=== PATIENT | female | born 2000 | race Caucasian/White ===

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

== ENCOUNTER 2018-03-12 22:53 | Emergency (ER) | payer SELFPAY ==
[~2018-03-12] VITALS: Ht 160 cm; Wt 99.8 kg
[~2018-03-12 22:53] MED LIST changes: +AZIT250T12 PO; -AZIT250T5 PO; +NAPR-915 PO; -NAPR500T3 PO; +ONDA8TAB9 PO
[2018-03-12] MEDS ORDERED: LIDOCAINE 1% INJ 20 ML 20 ML VIAL INJ ONE (23:30)
--- NOTE | 2018-03-12 23:37 | ED Integumentary General ---
General Stated Complaint: PIERCING INFECTED Source: patient, family Exam Limitations: no limitations History of Present Illness Date Seen by Provider: Mar 12, 2018 Time Seen by Provider: 23:25 Initial Comments The patient presents ER by private conveyance with chief complaint she's got a infected navel piercing. It was placed at home with a friend Thursday, 5 days ago. She says 2 days later she was getting infected so she took the piercing out has been cleaning it with soap and water but it continues to get infected. This draining some yellow bruise. She's had no fevers chills nausea vomiting abdominal pain dysuria. She is not on any control but denies being . She is not over the last time she had tetanus shot but she certainly more than 5 years ago. Allergies and Home Medications Allergies Coded Allergies: Sulfa (Sulfonamide Antibiotics) (Verified Allergy, Severe, 04/26/13) Home Medications Ondansetron 8 Mg Tab.rapdis, 8 MG PO Q6H PRN for NAUSEA/VOMITING-1ST LINE Prescribed by: ALLI TENORIO on 10/24/161915 Patient Home Medication List Home Medication List Reviewed: Yes Review of Systems Review of Systems Constitutional: No chills, No diaphoresis EENTM: No ear discharge, No hearing loss, No ear pain Respiratory: No cough, No short of breath Cardiovascular: No chest pain, No edema Gastrointestinal: No abdominal pain, No constipation, No diarrhea, No nausea Genitourinary: No discharge, No dysuria Past Gmvaygz-Ooeopl-Sdrrut Hx Patient Social History Alcohol Use: Denies Use Recreational Drug Use: No Smoking Status: Current Everyday Smoker Type Used: Cigarettes 2nd Hand Smoke Exposure: Yes Recent Foreign Travel: No Contact w/Someone Who Travel: No Recent Hopitalizations: No Immunizations Up To Date Tetanus Booster (TDap): Less than 5yrs PED Vaccines UTD: Yes Seasonal Allergies Seasonal Allergies: No Past Medical History Surgeries: Yes Orthopedic Respiratory: No Cardiac: No Neurological: No Reproductive Disorders: No Sexually Transmitted Disease: No HIV/AIDS: No Gastrointestinal: No Musculoskeletal: No Endocrine: No Cancer: No Psychosocial: No Integumentary: No Blood Disorders: No Adverse Reaction/Blood Tranf: No Family Medical History No Pertinent Family Hx Physical Exam Vital Signs Vital Signs - First Documented 03/12/18 23:25 Temp 99.0 Pulse 93 Resp 18 B/P (MAP) 127/59 (81) Pulse Ox 100 O2 Delivery Room Air Capillary Refill : General Appearance: WD/WN, no apparent distress HEENT: PERRL/EOMI, pharynx normal Cardiovascular: normal peripheral pulses, regular rate, rhythm Respiratory: no respiratory distress, no accessory muscle use Gastrointestinal: normal bowel sounds, non tender, soft Neurologic/Psychiatric: alert, normal mood/affect, oriented x 3 Skin: tattoos/piercings (previous site of navel piercing has some swelling, erythema, purulent discharge and induration in the area of fluctuance about 2 cm diameter.) Procedures/Interventions I&D : Site: superior navel Blade Size: 11 I & D Procedure: betadine prep (chlorhexidine alcohol) Progress The risks, benefits alternatives were explained patient accepted the risks and consented to do the procedure. We then used 3 cc of 1% lidocaine without epinephrine after cleaning the area thoroughly with Betadine and alcohol. We injected around the 2 openings from her previous piercing. When she was ascertained to be numb we use an 11 blade to make a cross cortés muro opening over both of the previous existing wounds. We expressed approximately 2-3 cc of thick caseous necrotic tissue. Wound was thoroughly probed with a sterile Q-tip and a light gauze packing was placed over the wound. Progress/Results/Core Measures Results/Orders My Orders Orders - JERZY DAVALOS Lidocaine 1% Inj 20 Ml (Xylocaine 1% Inj (03/12/18 23:30) Urine Bedside (03/12/18 23:31) Dipht,Pertuss(Acell),Tet Adult (Boostrix (03/12/18 23:45) Medications Given in ED Current Medications Medications Dose Ordered Sig/Ion Route Start Time Stop Time Status Last Admin Dose Admin Diphtheria/ Tetanus/Acell Pertussis 0.5 ml ONCE ONCE IM 03/12/18 23:45 03/12/18 23:46 DC 03/12/18 23:41 0.5 ML Lidocaine HCl 20 ml ONCE ONCE INJ 03/12/18 23:30 03/12/18 23:31 DC 03/12/18 23:41 20 ML Vital Signs/I&O 03/12/18 23:25 Temp 99.0 Pulse 93 Resp 18 B/P (MAP) 127/59 (81) Pulse Ox 100 O2 Delivery Room Air Departure Impression Primary Impression: Abscess Additional Impression: Infected piercing of trunk Disposition: HOME, SELF-CARE Condition: Stable Departure-Patient Inst. Decision time for Depature: 23:55 Referrals: NO,LOCAL PHYSICIAN (PCP/Family) Primary Care Physician Patient Instructions: Abscess Incision and Drainage (DC) Add. Discharge Instructions: Keep the wound clean with regular soap and water. It is okay to shower and let soap water or shampoo run over it. Keep the skin around it dry and use loose gauze dressings over it to capture any discharge or drainage. Allow the wound to heal naturally on its own over the next couple days. If it is getting bright red, bigger or swollen or more painful then you should return to your doctor for further evaluation. Use heat, Tylenol 1000 mg every 8 hours, ibuprofen 800 mg every 8 hours and distraction therapy to help with the pain. If this does not help with your pain then you can use one tablet of tramadol every 6 hours as needed for breakthrough pain. Tramadol will cause constipation and drowsiness and should not be mixed with alcohol or long driving trips or operating heavy machinery. home support worker the Keflex and take one capsule 4 times a day with food and before bedtime for the next 7 days. Scripts Tramadol HCl (Tramadol HCl) 50 Mg Tablet 50 MG PO Q6H PRN for PAIN, #15 TAB 0 Refills Prov: JERZY DAVALOS 03/12/18 Cephalexin (Cephalexin) 500 Mg Tablet 500 MG PO QID for 10 Days, #40 TAB 0 Refills Prov: JERZY DAVALOS 03/12/18 JERZY DAVALOS Mar 12, 2018 23:37
[2018-03-12] MEDS ORDERED: TETANUS,DIPTH,PERTUSS P/F (BOOSTRIX) 0.5 ML VIAL IM ONE (23:45)
[2018-03-12] MEDS ORDERED: TRAM50TA2 PO (23:57)
[2018-03-12] MEDS ORDERED: CEPH500T PO (23:57)
[2018-03-13 00:01] VITALS: BP 127/59
== END 2018-03-12 23:59 | disposition home or self-care (01) ==
LOC: EDUNIT# 22:53 → ER 22:54
DX: L02.216 Cutaneous abscess of umbilicus (principal); F17.210 Nicotine dependence, cigarettes, uncomplicated; Z88.2 Allergy status to sulfonamides; Z23 Encounter for immunization
CPT/HCPCS: 10060; 84703; 90715

== ENCOUNTER 2018-06-25 06:11 | Emergency (ER) | payer SELFPAY ==
[~2018-06-25] VITALS: Ht 157.5 cm; Wt 104.3 kg
[~2018-06-25 06:11] MED LIST changes: +CEPH500T PO; +TRAM50TA2 PO
--- OUTSIDE RECORDS SUMMARY | 2018-06-25 06:21 | XMS REPORT ---
Author Author MALIKA MOLINA [facility] Address [address] [place] [address] Phone Unavailable Care Team Providers Care Keyliner Name Role Phone MALIKA MOLINA Unavailable Unavailable PROBLEMS Unknown Problems ALLERGIES Substance Reaction Event Type Date Status Bactrim DS anaphylaxis Drug Allergy Sep, Active ENCOUNTERS Encounter Location Date Diagnosis [facility] [id number] [place] [phone] Nov, [facility] [id number] [place] [phone] Nov, [facility] [id number] [place] [phone] Oct, Superficial foreign body of lip without major open wound and without infection, initial encounter S00.551A [facility] [id number] [place] [phone] Oct, [facility] [id number] [place] [phone] Oct, Screening examination for sexually transmitted disease Z11.3 ; General counselling and advice on contraception Z30.09 ; IVDU ( intravenous drug user) F19.90 ; Acute vaginitis N76.0 and Other specified bacterial agents as the cause of diseases classified elsewhere B96.[address] [facility] [id number] [place] [id number] Sep, Dental examination Z01.20 [facility] [id number] [place] [phone] Sep, Encounter for test, result negative Z32.02 [facility] [id number] [place] [phone] August, Fall, initial encounter W19.XXXA ; Nose pain J34.89 and Pain of left eye H57.12 [facility] [address] [facility] [id number] [place] [address] Mar, Nexplanon removal Z30.46 IMMUNIZATIONS No Known Immunizations SOCIAL HISTORY Never Assessed REASON FOR VISIT Adutl outreach [facility] PLAN OF CARE Activity Details Follow Up prn Reason:Patient states she will call for an appointment VITAL SIGNS MEDICATIONS Medication Instructions Dosage Frequency Start Date End Date Duration Status Diclofenac Sodium 50 mg Orally Three times a day 1 tablet with food or milk 8h August, Oct, 30 day(s) Not-Taking RESULTS No Results PROCEDURES Procedure Date Ordered Result Body Site Full mouth debridement October 13, 2017 Billing Notes on claim October 13, 2017 Dental Outreach adjust balance October 13, 2017 INSTRUCTIONS MEDICATIONS ADMINISTERED No Known Medications MEDICAL (GENERAL) HISTORY Type Description Date Surgical History colonoscopy Surgical History right knee surgery Hospitalization History surgical stay
--- OUTSIDE RECORDS SUMMARY | 2018-06-25 06:21 | XMS REPORT ---
Author Author CASSIA STEVEN [facility] Address [address] [place] [address] Care Team Providers Care Program Project Manager Name Role Phone CASSIA STEVEN Unavailable PROBLEMS Unknown Problems ALLERGIES No Information ENCOUNTERS Encounter Location Date Diagnosis [facility] [id number] [place] [phone] Nov, [facility] [id number] [place] [phone] Nov, [facility] [id number] [place] [phone] Oct, Superficial foreign body of lip without major open wound and without infection, initial encounter S00.551A [facility] [id number] [place] [phone] Oct, [facility] [address] [phone] Oct, Screening examination for sexually transmitted disease Z11.3 ; General counselling and advice on contraception Z30.09 ; IVDU ( intravenous drug user) F19.90 ; Acute vaginitis N76.0 and Other specified bacterial agents as the cause of diseases classified elsewhere B96.89 [facility] [id number] [place] [phone] Sep, Dental examination Z01.20 [facility] [id number] [place] [phone] Sep, Encounter for test, result negative Z32.02 [facility] [id number] [place] [phone][phone] August, Fall, initial encounter W19.XXXA ; Nose pain J34.89 and Pain of left eye H57.12 [facility] [address] [facility] [id number] [place] [address] Mar, Nexplanon removal Z30.46 IMMUNIZATIONS No Known Immunizations SOCIAL HISTORY Never Assessed REASON FOR VISIT Eye appointment PLAN OF CARE VITAL SIGNS MEDICATIONS Unknown Medications RESULTS No Results PROCEDURES No Known procedures INSTRUCTIONS MEDICATIONS ADMINISTERED No Known Medications MEDICAL (GENERAL) HISTORY Type Description Date Surgical History colonoscopy Surgical History right knee surgery Hospitalization History surgical stay
--- OUTSIDE RECORDS SUMMARY | 2018-06-25 06:21 | XMS REPORT ---
Author Author CASSIA STEVEN [facility] Address [address] [place] [address] Care Team Providers Care Manager Deli Name Role Phone CASSIA STEVEN Unavailable PROBLEMS Unknown Problems ALLERGIES Substance Reaction Event Type Date Status Bactrim DS anaphylaxis Drug Allergy Oct, Active ENCOUNTERS Encounter Location Date Diagnosis [facility] [address] [phone] Dec, Non-seasonal allergic rhinitis, unspecified trigger J30.89 [facility] [id number] [place] [phone] Nov, [facility] [address] [phone] Nov, [facility] [id number] [place] [phone] Oct, Superficial foreign body of lip without major open wound and without infection, initial encounter S00.551A [facility] [id number] [place] [phone] Oct, [facility] [id number] [place] [phone] Oct, Screening examination for sexually transmitted disease Z11.3 ; General counselling and advice on contraception Z30.09 ; IVDU ( intravenous drug user) F19.90 ; Acute vaginitis N76.0 and Other specified bacterial agents as the cause of diseases classified elsewhere B96.89 [facility] [id number] [place] [id number] Sep, Dental examination Z01.20 [facility] [id number] [place] [phone] Sep, Encounter for test, result negative Z32.02 [facility] [address] [facility] [id number] [place] [address] Aug, 2017 Fall, initial encounter W19.XXXA ; Nose pain J34.89 and Pain of left eye H57.12 [facility] [address] [facility] [id number] [place] [phone] Mar, Nexplanon removal Z30.46 IMMUNIZATIONS No Known Immunizations SOCIAL HISTORY Never Assessed REASON FOR VISIT Pain (acute) lip-awoods PLAN OF CARE Activity Details Follow Up prn Reason: Future/Pending Procedure FOREIGN BODY REMOVAL-SIMPLE VITAL SIGNS Height 63 in 2017-11-04 Weight 210 lbs 2017-11-04 Temperature 98.3 degrees Fahrenheit 2017-11-04 Heart Rate 80 bpm 2017-11-04 Respiratory Rate 20 2017-11-04 BMI 37.20 kg/m2 2017-11-04 Blood pressure systolic 100 mmHg 2017-11-04 Blood pressure diastolic 70 mmHg 2017-11-04 MEDICATIONS Medication Instructions Dosage Frequency Start Date End Date Duration Status Cephalexin 500 mg Orally every 12 hrs 1 capsule 12h Oct, Oct, 05 days Active Metronidazole 500 mg Orally Twice a day 1 tablet 12h Oct, Oct, 07 days Active RESULTS No Results PROCEDURES Procedure Date Ordered Result Body Site REMOVE FOREIGN BODY November 04, 2017 INSTRUCTIONS MEDICATIONS ADMINISTERED No Known Medications MEDICAL (GENERAL) HISTORY Type Description Date Surgical History colonoscopy Surgical History right knee surgery Hospitalization History surgical stay
--- OUTSIDE RECORDS SUMMARY | 2018-06-25 06:21 | XMS REPORT ---
Author Author CASSIA STEVEN [facility] Address [address] [place] [address] Care Team Providers Care Banking Attorney Name Role Phone CASSIA STEVEN Unavailable PROBLEMS Unknown Problems ALLERGIES Substance Reaction Event Type Date Status Bactrim DS anaphylaxis Drug Allergy Oct, Active ENCOUNTERS Encounter Location Date Diagnosis [facility] [address] [address] Dec, Non-seasonal allergic rhinitis, unspecified trigger J30.89 [facility] [id number] [place] [address] Nov, [facility] [address] [address] Nov, [facility] [id number] [place] [address] Oct, Superficial foreign body of lip without major open wound and without infection, initial encounter S00.551A [facility] [id number] [place] [phone] Oct, [facility] [id number] [place] [address] Oct, Screening examination for sexually transmitted disease Z11.3 ; General counselling and advice on contraception Z30.09 ; IVDU ( intravenous drug user) F19.90 ; Acute vaginitis N76.0 and Other specified bacterial agents as the cause of diseases classified elsewhere B96.89 [facility] [id number] [place] [id number] Sep, Dental examination Z01.20 [facility] [id number] [place] [phone] Sep, Encounter for test, result negative Z32.02 [facility] [address] [facility] [id number] [place] [address] Aug, 2017 Fall, initial encounter W19.XXXA ; Nose pain J34.89 and Pain of left eye H57.12 [facility] [address] [facility] [id number] [place] [phone] Mar, Nexplanon removal Z30.46 IMMUNIZATIONS No Known Immunizations SOCIAL HISTORY Never Assessed REASON FOR VISIT Establish Care-awoods, here for WWE/STD/HepC screening PLAN OF CARE Activity Details Follow Up 1 Year Reason: VITAL SIGNS Height 63 in 2017-10-29 Weight 212.8 lbs 2017-10-29 Temperature 98 degrees Fahrenheit 2017-10-29 Heart Rate 82 bpm 2017-10-29 Respiratory Rate 20 2017-10-29 BMI 37.69 kg/m2 2017-10-29 Blood pressure systolic 116 mmHg 2017-10-29 Blood pressure diastolic 72 mmHg 2017-10-29 MEDICATIONS Medication Instructions Dosage Frequency Start Date End Date Duration Status Metronidazole 500 mg Orally Twice a day 1 tablet 12h 12 Oct, 2017 Oct, 07 days Active RESULTS No Results PROCEDURES Procedure Date Ordered Result Body Site Bacterial Vaginosis In House October 29, 2017 TRICHOMONAS ASSAY W/OPTIC October 29, 2017 CULTURE, BACTERIA, OTHER October 29, 2017 No Charge October 29, 2017 VENIPUNCT, ROUTINE* October 29, 2017 INSTRUCTIONS MEDICATIONS ADMINISTERED No Known Medications MEDICAL (GENERAL) HISTORY Type Description Date Surgical History colonoscopy Surgical History right knee surgery Hospitalization History surgical stay
--- OUTSIDE RECORDS SUMMARY | 2018-06-25 06:21 | XMS REPORT ---
Author Author KING MARÍA [facility] Address [address] [place] [address] Care Team Providers Care Passenger Car Upholsterer Apprentice Name Role Phone MARÍA QUEZADA Unavailable PROBLEMS Unknown Problems ALLERGIES Substance Reaction Event Type Date Status Bactrim DS anaphylaxis Drug Allergy Dec, Active ENCOUNTERS Encounter Location Date Diagnosis [facility] [address] [address] Dec, Non-seasonal allergic rhinitis, unspecified trigger J30.89 [facility] [id number] [place] [address] Nov, [facility] [id number] [place] [address] Nov, [facility] [id number] [place] [address] Oct, Superficial foreign body of lip without major open wound and without infection, initial encounter S00.551A [facility] [id number] [place] [phone] Oct, [facility] [id number] [place] [address] Oct, Screening examination for sexually transmitted disease Z11.3 ; General counselling and advice on contraception Z30.09 ; IVDU ( intravenous drug user) F19.90 ; Acute vaginitis N76.0 and Other specified bacterial agents as the cause of diseases classified elsewhere B96.89 [facility] [address] [place] [id number] Sep, Dental examination Z01.20 [facility] [id number] [place] [phone] Sep, Encounter for test, result negative Z32.02 [facility] [address] [facility] [id number] [place] [address] August, Fall, initial encounter W19.XXXA ; Nose pain J34.89 and Pain of left eye H57.12 [facility] [address] [facility] [id number] [place] [address] Mar, Nexplanon removal Z30.46 IMMUNIZATIONS No Known Immunizations SOCIAL HISTORY Never Assessed REASON FOR VISIT Sinus c/o--tcuppettRN, --Sinus and head congestion x 3 days PLAN OF CARE Activity Details Follow Up prn Reason: VITAL SIGNS Height 63 in 2017-12-24 Weight 217.3 lbs 2017-12-24 Temperature 98.3 degrees Fahrenheit 2017-12-24 Heart Rate 84 bpm 2017-12-24 Respiratory Rate 20 2017-12-24 BMI 38.49 kg/m2 2017-12-24 Blood pressure systolic 110 mmHg 2017-12-24 Blood pressure diastolic 82 mmHg 2017-12-24 MEDICATIONS Medication Instructions Dosage Frequency Start Date End Date Duration Status Zyrtec Allergy 10 mg Orally Once a day 1 tablet 24h Dec, Feb, 30 day(s) Active Fluticasone Propionate 50 MCG/ACT Nasally Once a day 1 spray in each nostril 24h Dec, 30 day(s) Active RESULTS No Results PROCEDURES No Known procedures INSTRUCTIONS MEDICATIONS ADMINISTERED No Known Medications MEDICAL (GENERAL) HISTORY Type Description Date Surgical History colonoscopy Surgical History right knee surgery Hospitalization History surgical stay
--- OUTSIDE RECORDS SUMMARY | 2018-06-25 06:21 | XMS REPORT ---
Author Author DANIELA GAO [facility] Address [address] [place] [address] Care Team Providers Care Construction Plant Operator Name Role Phone GAODANIELA Unavailable PROBLEMS Unknown Problems ALLERGIES No Information ENCOUNTERS Encounter Location Date Diagnosis [facility] [id number] [place] [phone] Nov, [facility] [address] [address] Nov, [facility] [address] [address] Oct, Superficial foreign body of lip without major open wound and without infection, initial encounter S00.551A [facility] [id number] [place] [phone] Oct, [facility] [address] [address] Oct, Screening examination for sexually transmitted disease Z11.3 ; General counselling and advice on contraception Z30.09 ; IVDU ( intravenous drug user) F19.90 ; Acute vaginitis N76.0 and Other specified bacterial agents as the cause of diseases classified elsewhere B96.89 [facility] [address] [place] [id number] Sep, Dental examination Z01.20 [facility] [address] [phone] 21 Sep, 2017 Encounter for test, result negative Z32.02 [facility] [id number] [place] [address] August, Fall, initial encounter W19.XXXA ; Nose pain J34.89 and Pain of left eye H57.12 [facility] [address] [facility] [place] [id number] [place] [address] 15 Mar, 2016 Nexplanon removal Z30.46 IMMUNIZATIONS No Known Immunizations SOCIAL HISTORY Never Assessed REASON FOR VISIT Pt states seh had a positive test 1 month ago-- wants testing done due to history of IV drug use JStrasserRN PLAN OF CARE VITAL SIGNS MEDICATIONS Unknown Medications RESULTS Name Result Date Reference Range TEST, URINE (IN HOUSE) 2017-10-08 RESULTS negative Lot # [id number] Control + Exp date 2019-04-19 PROCEDURES Procedure Date Ordered Result Body Site URINE TEST October 08, 2017 INSTRUCTIONS MEDICATIONS ADMINISTERED No Known Medications MEDICAL (GENERAL) HISTORY Type Description Date Surgical History colonoscopy Surgical History right knee surgery Hospitalization History surgical stay
--- OUTSIDE RECORDS SUMMARY | 2018-06-25 06:21 | XMS REPORT ---
Author Author STEPHANY BARRERA Organization [facility] Address [address] [place] [address] Care Team Providers Care Digital Solution Architect Name Role Phone STEPHANY BARRERA Unavailable PROBLEMS Unknown Problems ALLERGIES Substance Reaction Event Type Date Status Bactrim DS anaphylaxis Drug Allergy August, Active ENCOUNTERS Encounter Location Date Diagnosis [facility] [id number] [place] [address] Nov, [facility] [address] [address] Nov, [facility] [id number] [place] [address] Oct, Superficial foreign body of lip without major open wound and without infection, initial encounter S00.551A [facility] [id number] [place] [phone] Oct, [facility] [id number] [place] [address] Oct, Screening examination for sexually transmitted disease Z11.3 ; General counselling and advice on contraception Z30.09 ; IVDU ( intravenous drug user) F19.90 ; Acute vaginitis N76.0 and Other specified bacterial agents as the cause of diseases classified elsewhere B96.89 [facility] [id number] [place] [phone] Sep, Dental examination Z01.20 [facility] [id number] [place] [phone] Sep, Encounter for test, result negative Z32.02 [facility] [id number] [place] [address] August, Fall, initial encounter W19.XXXA ; Nose pain J34.89 and Pain of left eye H57.12 [facility] [address] [facility] [id number] [place] [address] Mar, Nexplanon removal Z30.46 IMMUNIZATIONS No Known Immunizations SOCIAL HISTORY Never Assessed REASON FOR VISIT possible broken nose, PT reports 4 days ago she flipped off her bed and hit her face on the wall. PT notes she has a lot of pressure in her head along with pain in her left eye. - Ezio MONTESINOS PLAN OF CARE VITAL SIGNS Height 63 in 2017-09-03 Weight 197.6 lbs 2017-09-03 Temperature 98.3 degrees Fahrenheit 2017-09-03 Heart Rate 80 bpm 2017-09-03 Respiratory Rate 20 2017-09-03 BMI 35.00 kg/m2 2017-09-03 Blood pressure systolic 123 mmHg 2017-09-03 Blood pressure diastolic 68 mmHg 2017-09-03 MEDICATIONS Medication Instructions Dosage Frequency Start Date End Date Duration Status Diclofenac Sodium 50 mg Orally Three times a day 1 tablet with food or milk 8h August, Oct, 30 day(s) Active PredniSONE 20 mg Orally 2 times a day 1 tablet 12h August, August, 05 days Active RESULTS Name Result Date Reference Range Xray : Facial bones 3 view (IN HOUSE) 2017-09-03 PROCEDURES Procedure Date Ordered Result Body Site X-RAY EXAM OF FACIAL BONES September 03, 2017 INSTRUCTIONS MEDICATIONS ADMINISTERED No Known Medications MEDICAL (GENERAL) HISTORY Type Description Date Surgical History colonoscopy Surgical History right knee surgery Hospitalization History surgical stay
--- OUTSIDE RECORDS SUMMARY | 2018-06-25 06:21 | XMS REPORT ---
Author Author BROWN HAWKINS [facility] Address [address] [place] [address] Care Team Providers Care Weigher Packing Name Role Phone BROWN HAWKINS Unavailable PROBLEMS Unknown Problems ALLERGIES Substance Reaction Event Type Date Status Bactrim DS anaphylaxis Drug Allergy Mar, Active SOCIAL HISTORY No smoking Hx information available PLAN OF CARE Activity Details Follow Up prn Reason: VITAL SIGNS Height 63 in 2016-04-03 Weight 223.5 lbs 2016-04-03 Temperature 98.1 degrees Fahrenheit 2016-04-03 Heart Rate 68 bpm 2016-04-03 Respiratory Rate 18 2016-04-03 BMI 39.59 kg/m2 2016-04-03 Blood pressure systolic 124 mmHg 2016-04-03 Blood pressure diastolic 76 mmHg 2016-04-03 MEDICATIONS No Known Medications RESULTS No Results PROCEDURES Procedure Date Ordered Related Diagnosis Body Site REMOVE DRUG IMPLANT DEVICE Apr 03, 2016 IMMUNIZATIONS No Known Immunizations
--- OUTSIDE RECORDS SUMMARY | 2018-06-25 06:21 | XMS REPORT ---
Author Author CASSIA STEVEN [facility] Address [address] [place] [address] Care Team Providers Care Cream Hauler Name Role Phone CASSIA STEVEN Unavailable PROBLEMS Unknown Problems ALLERGIES No Information ENCOUNTERS Encounter Location Date Diagnosis [facility] [address] [address] Dec, Non-seasonal allergic rhinitis, unspecified trigger J30.89 [facility] [id number] [place] [address] Nov, [facility] [address] [address] Nov, [facility] [id number] [place] [address] Oct, Superficial foreign body of lip without major open wound and without infection, initial encounter S00.551A [facility] [id number] [place] [address] Oct, [facility] [id number] [place] [address] Oct, Screening examination for sexually transmitted disease Z11.3 ; General counselling and advice on contraception Z30.09 ; IVDU ( intravenous drug user) F19.90 ; Acute vaginitis N76.0 and Other specified bacterial agents as the cause of diseases classified elsewhere B96.89 [facility] [address] [place] [phone] Sep, Dental examination Z01.20 [facility] [id number] [place] [address] Sep, Encounter for test, result negative Z32.02 [facility] [address] [facility] [id number] [place] [address] August, Fall, initial encounter W19.XXXA ; Nose pain J34.89 and Pain of left eye H57.12 [facility] [address] [facility] [id number] [place] [address] Mar, Nexplanon removal Z30.46 IMMUNIZATIONS No Known Immunizations SOCIAL HISTORY Never Assessed REASON FOR VISIT eye exam PLAN OF CARE VITAL SIGNS MEDICATIONS No Known Medications RESULTS No Results PROCEDURES No Known procedures INSTRUCTIONS MEDICATIONS ADMINISTERED No Known Medications MEDICAL (GENERAL) HISTORY Type Description Date Surgical History colonoscopy Surgical History right knee surgery Hospitalization History surgical stay
--- OUTSIDE RECORDS SUMMARY | 2018-06-25 06:21 | XMS REPORT ---
Author Author CASSIA STEVEN [facility] Address [address] [place] [address] Care Team Providers Care Sample Color Maker Name Role Phone CASSIA STEVEN Unavailable PROBLEMS Unknown Problems ALLERGIES No Information ENCOUNTERS Encounter Location Date Diagnosis [facility] [address] [address] Dec, Non-seasonal allergic rhinitis, unspecified trigger J30.89 [facility] [id number] [place] [address] Nov, [facility] [address] [address] Nov, [facility] [id number] [place] [address] Oct, Superficial foreign body of lip without major open wound and without infection, initial encounter S00.551A [facility] [id number] [place] [phone] Oct, [facility] [id number] [place] [address] Oct, Screening examination for sexually transmitted disease Z11.3 ; General counselling and advice on contraception Z30.09 ; IVDU ( intravenous drug user) F19.90 ; Acute vaginitis N76.0 and Other specified bacterial agents as the cause of diseases classified elsewhere B96.89 [facility] [address] [place] [phone] Sep, Dental examination Z01.20 [facility] [id number] [place] [address] Sep, Encounter for test, result negative Z32.02 [facility] [address] [facility] [id number] [place] [address] August, Fall, initial encounter W19.XXXA ; Nose pain J34.89 and Pain of left eye H57.12 [facility] [address] [facility] [id number] [place] [address] Mar, Nexplanon removal Z30.46 IMMUNIZATIONS No Known Immunizations SOCIAL HISTORY Never Assessed REASON FOR VISIT LVM PLAN OF CARE VITAL SIGNS MEDICATIONS No Known Medications RESULTS No Results PROCEDURES No Known procedures INSTRUCTIONS MEDICATIONS ADMINISTERED No Known Medications MEDICAL (GENERAL) HISTORY Type Description Date Surgical History colonoscopy Surgical History right knee surgery Hospitalization History surgical stay
--- OUTSIDE RECORDS SUMMARY | 2018-06-25 06:22 | XMS REPORT | Continuity of Care Document ---
Author Author [facility] Organization [facility] Address Unknown Phone Unavailable Allergies Active Description Code Type Severity Reaction Onset Reported/Identified Relationship to Patient Clinical Status Yes Sulfa (Sulfonamide Antibiotics) [id number] Drug Allergy Severe N/A 2013 Medications There is no data. Problems Date Dx Coded Attending Type Code [...] 836.0 03/27/2014 Ot 836.0 03/28/2014 CORY COURTNEY [facility] Ot 780.54 HYPERSOMNIA, UNSPECIFIED 03/28/2014 CORY COURTNEY [facility] Ot 786.09 RESPIRATORY ABNORM NEC 04/29/2016 Ot [...] OF UNSPECIFIED LIGAMENT OF LEFT A 07/11/2016 JOHN GILL DO Ot S99.912A UNSPECIFIED INJURY OF LEFT ANKLE, INITIA 07/11/2016 JOHN GILL DO Ot W18.40XA SLIPPING, TRIPPING AND STUMBLING W/O FAL 07/11/2016 BRIDGET JOHN [place] Ot Y99.8 OTHER EXTERNAL CAUSE STATUS 07/11/2016 Ot 836.0 TEAR MED MENISC KNEE-CUR 07/11/2016 JOHN GILL DO Ot S93.402A SPRAIN OF UNSPECIFIED LIGAMENT OF LEFT A 07/11/2016 JOHN GILL DO Ot S99.912A UNSPECIFIED INJURY OF LEFT ANKLE, INITIA 07/11/2016 JOHN GILL DO Ot W18.40XA SLIPPING, TRIPPING AND STUMBLING W/O FAL 07/11/2016 BRIDGET JOHN [place] Ot Y99.8 OTHER EXTERNAL CAUSE STATUS 09/20/2016 JOHN GILL DO Ot F17.210 NICOTINE DEPENDENCE, CIGARETTES, UNCOMPL 09/20/2016 JOHN GILL DO Ot S93.402A SPRAIN OF UNSPECIFIED LIGAMENT OF LEFT A 09/20/2016 JOHN GILL DO Ot S99.912A UNSPECIFIED INJURY OF LEFT ANKLE, INITIA 09/20/2016 JOHN GILL DO Ot W18.40XA SLIPPING, TRIPPING AND STUMBLING W/O FAL 09/20/2016 BRIDGET JOHN [place] Ot Y99.8 OTHER EXTERNAL CAUSE STATUS 10/24/2016 Ot 836.0 TEAR MED MENISC KNEE-CUR 10/24/2016 ALLI TENORIO APRN Ot F17.210 NICOTINE DEPENDENCE, CIGARETTES, UNCOMPL 10/24/2016 ALLI TENORIO APRN Ot R11.2 NAUSEA WITH VOMITING, UNSPECIFIED 03/12/2018 ANOOP WANG, JERZY Bland Ot F17.210 NICOTINE DEPENDENCE, CIGARETTES, UNCOMPL 03/12/2018 ANOOP WANG, JERZY Bland Ot L02.216 CUTANEOUS ABSCESS OF UMBILICUS 03/12/2018 JERZY DAVALOS MD J Ot Z23 ENCOUNTER FOR IMMUNIZATION 03/12/2018 JERZY DAVALOS MD Ot Z88.2 ALLERGY STATUS TO SULFONAMIDES STATUS 03/15/2018 JERZY DAVALOS MD J Ot F17.210 NICOTINE DEPENDENCE, CIGARETTES, UNCOMPL 03/15/2018 JERZY DAVALOS MD J Ot L02.216 CUTANEOUS ABSCESS OF UMBILICUS 03/15/2018 JERZY DAVALOS MD J Ot Z23 ENCOUNTER FOR IMMUNIZATION 03/15/2018 JERZY DAVALOS MD Ot Z88.2 ALLERGY STATUS TO SULFONAMIDES STATUS 03/18/2018 JERZY DAVALOS MD Ot F17.210 NICOTINE DEPENDENCE, CIGARETTES, UNCOMPL 03/18/2018 JERZY DAVALOS MD Ot L02.216 CUTANEOUS ABSCESS OF UMBILICUS 03/18/2018 JERZY DAVALOS MD J Ot Z23 ENCOUNTER FOR IMMUNIZATION 03/18/2018 JERZY DAVALOS MD Ot Z88.2 ALLERGY STATUS TO SULFONAMIDES STATUS Procedures There is no data. Results Test Result Range Automated blood complete blood count (hemogram) panel - 04/29/16 19:30 Blood leukocytes automated count (number/volume) 14.0 10*3/uL 4.3-11.0 Blood erythrocytes automated count (number/volume) 4.80 10*6/uL 4.35-5.85 Venous blood hemoglobin measurement (mass/volume) 12.7 [...] Automated blood platelet mean volume measurement 9.3 [foz_us] 7.4-10.4 Fibrin D-dimer FEU measurement in platelet [...] Urine pH measurement by test strip 7 5-9 Specific gravity of urine by test strip 1.010 1.016- 1.022 Urine protein assay by test strip, semi-quantitative [...] 18:35 Blood leukocytes automated count (number/volume) 13.4 10*3/uL 4.3-11.0 Blood erythrocytes automated count (number/volume) 4.58 10*6/uL 4.35-5.85 Venous blood hemoglobin measurement (mass/volume) 12.3 [...] Automated blood platelet mean volume measurement 9.5 [foz_us] 7.4-10.4 Automated blood neutrophils/100 leukocytes 69 % [...] Serum or plasma sodium measurement (moles/volume) 139 mmol/L 135-145 Serum or plasma potassium measurement (moles/volume) 3.6 mmol/L 3.6-5.0 Serum or plasma chloride measurement (moles/volume) 107 mmol/L 98-107 Carbon dioxide 23 mmol/L 21-32 Serum or plasma anion gap determination (moles/volume) 9 mmol/L 5-14 Serum or plasma urea nitrogen measurement (mass/volume) 8 mg/dL 7-18 Serum or plasma creatinine measurement (mass/volume) 0.63 mg/dL 0.60-1.30 Serum or plasma urea nitrogen/creatinine mass [...] - 10/24/16 18:35 Lipase 21 U/L 8-78 CULTURE, GENITAL - 10/29/17 10:57 CULTURE, GENITAL SEE NOTE NRG Encounters ACCT No. Visit Date/Time Discharge Status Pt. Type Provider Facility Loc./Unit Complaint [id number] 03/12/2018 22:54:00 03/12/2018 23:59:00 DIS Outpatient JERZY DAVALOS MD [facility] ER PIERCING INFECTED [id number] 10/24/2016 18:03:00 10/24/2016 20:04:00 DIS Emergency ALLI TENORIO SASH MAKER [facility] ER VOMITING [id number] 07/11/2016 01:43:00 07/11/2016 03:50:00 DIS Emergency BRIDGET DOJOHN K [facility] ER LEFT ANKLE INJURY [id number] 04/29/2016 18:58:00 04/29/2016 20:34:00 DIS Emergency ALLI TENORIO SASH MAKER [facility] ER COUGH,CONGESTION [id number] 03/27/2014 21:00:00 03/28/2014 06:35:00 DIS Outpatient CORY COURTNEY ZANJERO [facility] SLEEP SNORING,DAY TIME SLEEPINESS [id number] 04/26/2013 21:09:00 04/26/2013 23:18:00 DIS Emergency LADARIUS BISWAS [facility] ER FELL ON R KNEE [id number] 06/25/2018 06:12:00 ACT Emergency ELLEN RAYMOND MD [facility] ER CRAMPING,VAG BLEEDING,POSS [id number] 11/19/2011 08:16:00 Document Registration [id number] 03/27/2014 21:01:06 ACT Document Registration [id number] 04/16/2018 12:00:00 04/16/2018 23:59:59 CLS Outpatient CASSIA STEVEN [facility] [id number] 10/29/2017 08:40:00 Document Registration
--- NOTE | 2018-06-25 08:28 | ED GU-Female ---
General Chief Complaint: -Female Stated Complaint: CRAMPING,VAG BLEEDING,POSS Nursing Triage Note: pt c/o vaginal bleeding, cramping, and vaginal discharge x 1 day. pt reports taking 2 tests that results positive. pt has hx of miscarrige in march 2017. pt is G1, P0, A1. Nursing Sepsis Screen: No Definite Risk Source: patient Exam Limitations: no limitations History of Present Illness Date Seen by Provider: Jun 25, 2018 Time Seen by Provider: 08:12 Initial Comments The patient reports that her last menstrual period was March 29. She has had 2 home tests which were positive. She has a past history of a miscarriage and March 2017. Allergies and Home Medications Allergies Coded Allergies: Sulfa (Sulfonamide Antibiotics) (Verified Allergy, Severe, 04/26/13) Home Medications Cephalexin 500 Mg Tablet, 500 MG PO QID Prescribed by: JERZY DAVALOS on 03/12/182356 Ondansetron 8 Mg Tab.rapdis, 8 MG PO Q6H PRN for NAUSEA/VOMITING-1ST LINE Prescribed by: ALLI TENORIO on 10/24/161915 Tramadol HCl 50 Mg Tablet, 50 MG PO Q6H PRN for PAIN Prescribed by: JERZY DAVALOS on 03/12/18 441 Patient Home Medication List Home Medication List Reviewed: Yes Review of Systems Review of Systems Constitutional: see HPI EENTM: no symptoms reported Respiratory: no symptoms reported Cardiovascular: no symptoms reported Genitourinary: other (blood and mucus flow since yesterday) Musculoskeletal: no symptoms reported Skin: no symptoms reported Psychiatric/Neurological: No Symptoms Reported Endocrine: No Symptoms Reported Hematologic/Lymphatic: No Symptoms Reported Past Jawroxu-Resvob-Pegijf Hx Patient Social History Type Used: Cigarettes 2nd Hand Smoke Exposure: Yes Recent Foreign Travel: No Contact w/Someone Who Travel: No Recent Infectious Disease Expo: No Recent Hopitalizations: No Immunizations Up To Date Tetanus Booster (TDap): Unknown PED Vaccines UTD: Yes Seasonal Allergies Seasonal Allergies: No Past Medical History Surgeries: Yes (colonoscopy, i&d lip) Orthopedic Respiratory: No Cardiac: No Neurological: No : Yes (possibly unconfirmed ) Last Menstrual Period: Mar 24, 2018 Hx : 1 Hx Para: 0 Hx Total # of Abortions (Sp): 1 Reproductive Disorders: No Sexually Transmitted Disease: No HIV/AIDS: No Genitourinary: No Gastrointestinal: No Musculoskeletal: No Endocrine: No HEENT: No Cancer: No Psychosocial: No Integumentary: No Blood Disorders: No Adverse Reaction/Blood Tranf: No Family Medical History No Pertinent Family Hx Physical Exam Vital Signs Vital Signs - First Documented 06/25/18 07:10 Temp 98.3 Pulse 106 Resp 18 B/P (MAP) 143/89 (107) Pulse Ox 100 O2 Delivery Room Air Capillary Refill : Less Than 3 Seconds Height, Weight, BMI Height: 5'2.00" Weight: 230lbs. oz. 104.455913lf; 35.15 BMI Method:Stated General Appearance: WD/WN, no apparent distress HEENT: PERRL/EOMI, normal ENT inspection, TMs normal, pharynx normal Neck: non-tender, full range of motion Cardiovascular: normal peripheral pulses, regular rate, rhythm, no edema, no gallop, no JVD, no murmur Respiratory: chest non-tender, lungs clear, normal breath sounds, no respiratory distress, no accessory muscle use, respiratory distress Progress/Results/Core Measures Suspected Sepsis Recent Fever Within 48 Hours: No Infection Criteria Present: None New/Unexplained Altered Menta: No Sepsis Screen: No Definite Risk SIRS Temperature:98.3 Pulse: 106 Respiratory Rate: 18 Laboratory Tests 06/25/18 08:25: White Blood Count 13.2H Blood Pressure 143 /89 Mean: 107 Laboratory Tests 06/25/18 08:25: Platelet Count 366 Results/Orders Lab Results Laboratory Tests Test 06/25/18 08:25 Range/Units White Blood Count 13.2 H 4.3-11.0 10^3/uL Red Blood Count 4.50 4.35-5.85 10^6/uL Hemoglobin 12.4 11.5-16.0 G/DL Hematocrit 38 35-52 % Mean Corpuscular Volume 84 80-99 FL Mean Corpuscular Hemoglobin 28 25-34 PG Mean Corpuscular Hemoglobin Concent 33 32-36 G/DL Red Cell Distribution Width 13.9 10.0-14.5 % Platelet Count 366 130-400 10^3/uL Mean Platelet Volume 9.4 7.4-10.4 FL Neutrophils (%) (Auto) 70 42-75 % Lymphocytes (%) (Auto) 24 12-44 % Monocytes (%) (Auto) 5 0-12 % Eosinophils (%) (Auto) 1 0-10 % Basophils (%) (Auto) 0 0-10 % Neutrophils # (Auto) 9.3 H 1.8-7.8 X 10^3 Lymphocytes # (Auto) 3.1 1.0-4.0 X 10^3 Monocytes # (Auto) 0.7 0.0-1.0 X 10^3 Eosinophils # (Auto) 0.1 0.0-0.3 10^3/uL Basophils # (Auto) 0.0 0.0-0.1 10^3/uL Human Chorionic Gonadotropin, Quant 14 H <5 MIU/ML My Orders Orders - ELLEN RAYMOND MD Cbc With Automated Diff (06/25/18 07:13) I-Stat Bedside Testing (06/25/18 07:13) Urine Bedside (06/25/18 08:05) Hcg,Quantitative (06/25/18 08:09) Us Ob<14 Wks Sngle W/Transvag (06/25/18 08:51) Vital Signs/I&O 06/25/18 07:10 Temp 98.3 Pulse 106 Resp 18 B/P (MAP) 143/89 (107) Pulse Ox 100 O2 Delivery Room Air Capillary Refill : Less Than 3 Seconds Blood Pressure Mean: 107 Departure Communication (Admissions) Quantitative hCG was 14. Ultrasound did not show a gestational sac. Impression Primary Impression: very early versus miscarriage Disposition: 01 HOME, SELF-CARE Condition: Stable/Unchanged Departure-Patient Inst. Decision time for Depature: 10:21 Referrals: [facility] (PCP) Primary Care Physician Add. Discharge Instructions: All discharge instructions reviewed with patient and/or family. Voiced understanding. Recheck a home in about 2 weeks. See your provider if problems ELLEN RAYMOND MD Jun 25, 2018 08:27
[2018-06-25 08:34] LABS: BASOPHILS % (AUTO) 0 % (0-10); EOSINOPHILS # (AUTO) 0.1 10^3/uL (0.0-0.3); EOSINOPHILS % (AUTO) 1 % (0-10); HEMATOCRIT 38 % (35-52); HEMOGLOBIN 12.4 G/DL (11.5-16.0); LYMPHOCYTES # (AUTO) 3.1 X 10^3 (1.0-4.0); LYMPHOCYTES % (AUTO) 24 % (12-44); MEAN CORPUSCULAR HEMOGLOBIN 28 PG (25-34); MEAN CORPUSCULAR HGB CONC 33 G/DL (32-36); MEAN CORPUSCULAR VOLUME 84 FL (80-99); MEAN PLATELET VOLUME 9.4 FL (7.4-10.4); MONOCYTES # (AUTO) 0.7 X 10^3 (0.0-1.0); MONOCYTES % (AUTO) 5 % (0-12); NEUTROPHILS # (AUTO) 9.3 X 10^3 (1.8-7.8); NEUTROPHILS % (AUTO) 70 % (42-75); PLATELET COUNT 366 10^3/uL (130-400); RED CELL DISTRIBUTION WIDTH 13.9 % (10.0-14.5); WHITE BLOOD COUNT 13.2 10^3/uL (4.3-11.0)
[2018-06-25 10:33] VITALS: BP 114/74
--- NOTE | 2018-06-25 10:37 | Diagnostic Imaging Report ---
INDICATION: Positive urine test. FINDINGS: The uterus measures 7.2 x 4.3 x 3.9 cm. The endometrium is approximately 8 mm in thickness. No definite intrauterine gestational sac is identified. No myometrial mass is identified. The right ovary measures 3.9 x 3.1 x 2.4 cm and the left ovary measures 2.6 x 2.1 x 2.3 cm. The ovaries contain small follicles. There is blood flow to both ovaries. No adnexal mass is seen. There is trace free fluid adjacent to the right ovary. IMPRESSION: No evidence of intrauterine or ectopic . No significant abnormality is detected. Dictated by: Dictated on workstation # [id number]
== END 2018-06-25 10:36 | disposition home or self-care (01) ==
LOC: EDUNIT# 06:11 → ER 06:12
DX: O20.9 Hemorrhage in early pregnancy, unspecified (principal); Z88.2 Allergy status to sulfonamides; Z87.59 Personal history of other complications of pregnancy, childbirth and the puerperium; Z77.22 Contact with and (suspected) exposure to environmental tobacco smoke (acute) (chronic); Z98.890 Other specified postprocedural states; Z3A.00 Weeks of gestation of pregnancy not specified
CPT/HCPCS: 36415; 76801; 76817; 84702; 84703; 85025

== ENCOUNTER 2018-07-18 10:04 | Emergency (ER) | payer SELFPAY ==
[~2018-07-18] VITALS: Ht 157.5 cm; Wt 107.5 kg
[2018-07-18] MEDS ORDERED: LORATADINE (CLARITIN) 10 MG TAB PO ONE (10:45)
[2018-07-18] MEDS ORDERED: diphenhydrAMINE 50 MG/ML INJ (BENADRYL) IVP ONE (10:45)
[2018-07-18] MEDS ORDERED: methylPREDNISolone 125 MG (Solu-MEDROL) VIAL IVP ONE (10:45)
[2018-07-18] MEDS ORDERED: FAMOTIDINE 20MG/2ML IV (PEPCID) IVP ONE (10:45)
--- NOTE | 2018-07-18 10:45 | ED Integumentary General ---
General Chief Complaint: Allergic Reaction Stated Complaint: POSSIBLE ALLERGIC REACTION Nursing Triage Note: PT STATES HAS ALLERGIC RX STARTED ABOUT 0500 THIS AM AND HAS JUST GOTTEN WORSE, STATES HAS FACIAL SWELLING, AND HIVES ALL OVER. CAN NOT THINK OF WHY HAVING RX. Source: patient, other Exam Limitations: no limitations History of Present Illness Date Seen by Provider: Jul 18, 2018 Time Seen by Provider: 10:26 Initial Comments Patient presents to the ER by private conveyance with her significant other and chief complaint that this morning around 5:00 she started noticed red splotchy itchy rash over her bilateral upper face and causing her eyelids to be swollen. She is able to spontaneously open her eyelids. She says she has not taken anything for the itching yet. She has no known chemical or mechanical trauma. She has not been on any new medicines the last couple days. She did have a miscarriage 2 weeks ago and found she had gonorrhea so they gave her a shot as well as some pills and since that time she has had watery nonbloody diarrhea. She has tried Pepto-Bismol as well as Imodium without significant relief of her diarrhea. Usually just uses the walk-in clinic and does not see a doctor routinely at [facility]. She has no discharge from the eyes nose or throat. She has no difficulty swallowing liquids or breathing. No stridor. She does have a history of sulfa allergy. 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 Allergies and Home Medications Allergies Coded Allergies: Sulfa (Sulfonamide Antibiotics) (Verified Allergy, Severe, 04/26/13) Home Medications Cephalexin 500 Mg Tablet, 500 MG PO QID Prescribed by: JERZY DAVALOS on 03/12/18 2357 Diphenoxylate HCl/Atropine 1 Each Tablet, 2 EACH PO QID PRN for DIARRHEA Prescribed by: JERZY DAVALOS on 07/18/18 1201 Ondansetron 8 Mg Tab.rapdis, 8 MG PO Q6H PRN for NAUSEA/VOMITING-1ST LINE Prescribed by: ALLI TENORIO on 10/24/16 191 Tramadol HCl 50 Mg Tablet, 50 MG PO Q6H PRN for PAIN Prescribed by: JERZY DAVALOS on 03/12/18 2357 Patient Home Medication List Home Medication List Reviewed: Yes Review of Systems Review of Systems Constitutional: No chills, No diaphoresis EENTM: No ear discharge, No hearing loss Respiratory: No cough, No dyspnea on exertion Cardiovascular: No chest pain, No edema Gastrointestinal: No abdominal pain, No constipation, No diarrhea Genitourinary: No discharge, No dysuria Musculoskeletal: No back pain, No joint pain Skin: No pruritus, No rash Past Cdpkljj-Kyacsk-Vhlsro Hx Patient Social History Alcohol Use: Past History Recreational Drug Use: No Smoking Status: Current Everyday Smoker Type Used: Cigarettes 2nd Hand Smoke Exposure: Yes Recent Foreign Travel: No Contact w/Someone Who Travel: No Recent Infectious Disease Expo: No Recent Hopitalizations: No Immunizations Up To Date Tetanus Booster (TDap): Unknown PED Vaccines UTD: Yes Seasonal Allergies Seasonal Allergies: No Past Medical History Surgeries: Yes (colonoscopy, i&d lip) Orthopedic Respiratory: No Cardiac: No Neurological: No Reproductive Disorders: No Sexually Transmitted Disease: No HIV/AIDS: No Genitourinary: No Gastrointestinal: No Musculoskeletal: No Endocrine: No HEENT: No Cancer: No Psychosocial: No Integumentary: No Blood Disorders: No Adverse Reaction/Blood Tranf: No Family Medical History No Pertinent Family Hx Physical Exam Vital Signs Vital Signs - First Documented 07/18/18 10:25 Temp 97.5 Pulse 82 Resp 18 B/P (MAP) 120/92 (101) Pulse Ox 100 Capillary Refill : Less Than 3 Seconds General Appearance: WD/WN, no apparent distress HEENT: PERRL/EOMI, TMs normal, pharynx normal, pharyngeal erythema (tonsillar swelling without exudate), other (bilateral face from the nose to the scalp is erythematous consistent with hives. Pruritic. No papules or drainage.) Neck: non-tender, full range of motion, supple, normal inspection Cardiovascular: normal peripheral pulses, regular rate, rhythm, no edema Respiratory: lungs clear, normal breath sounds, no respiratory distress, no accessory muscle use; No stridor, No wheezing Gastrointestinal: non tender, soft Neurologic/Psychiatric: alert, normal mood/affect, oriented x 3 Skin: rash (erythematous rash upper face bilaterally with mild swelling of the upper and lower eyelids. The patient is easily able to open her eyelids.) Skin Problem Location: face Progress/Results/Core Measures Results/Orders Micro Results Microbiology 07/18/18 C. difficile GDH Antigen & Toxins - Final, Complete My Orders Orders - JERZY DAVALOS C Difficile Ag + Toxin A/B. (07/18/18 10:36) Stool Culture (07/18/18 10:36) Fecal Wbc (07/18/18 10:36) Parasite Scrn Stool Giard Cryp (07/18/18 10:36) Diphenhydramine Injection (Benadryl Inje (07/18/18 10:45) Famotidine Injection (Pepcid Injection) (07/18/18 10:45) Loratadine Tablet (Claritin Tablet) (07/18/18 10:45) Methylprednisolone Sod Succ (Solu-Medrol (07/18/18 10:45) Urine Bedside (07/18/18 11:06) Medications Given in ED Current Medications Medications Dose Ordered Sig/Ion Route Start Time Stop Time Status Last Admin Dose Admin Diphenhydramine HCl 25 mg ONCE ONCE IVP 07/18/18 10:45 07/18/18 10:46 DC 07/18/18 10:52 25 MG Famotidine 20 mg ONCE ONCE IVP 07/18/18 10:45 07/18/18 10:46 DC 07/18/18 10:53 20 MG Loratadine 10 mg ONCE ONCE PO 07/18/18 10:45 07/18/18 10:46 DC 07/18/18 11:01 10 MG Methylprednisolone Sodium Succinate 125 mg ONCE ONCE IVP 07/18/18 10:45 07/18/18 10:46 DC 07/18/18 10:50 125 MG Vital Signs/I&O 07/18/18 10:25 Temp 97.5 Pulse 82 Resp 18 B/P (MAP) 120/92 (101) Pulse Ox 100 Blood Pressure Mean: 101 Progress Progress Note #1: Time: 10:44 Progress Note There is no airway compromise however the patient does have what looks to be allergic reaction with rash. The diarrhea could be viral. Her conjunctiva are not particularly injected as in with a virus. We'll offer her stool studies and she's had watery diarrhea for 14 days. She does not appear to be dehydrated on clinical exam and her heart rate is in the 70s. Blood pressure is not low. We' ll give her Benadryl, loratadine, famotidine, steroids. We'll consider a reduced dose of steroids duration secondary to her diarrhea. We'll encourage her to follow up with primary care outpatient. Progress Note #2: Time: 11:57 Progress Note Itching swelling rash improved. CDT pending. Departure Impression Primary Impression: Hives of unknown origin Additional Impression: Diarrhea in adult patient Disposition: 01 HOME, SELF-CARE Condition: Improved Departure-Patient Inst. Decision time for Depature: 12:30 Referrals: [facility] (PCP/Family) Primary Care Physician Patient Instructions: Diarrhea in Adolescents and Adults, Hives Add. Discharge Instructions: You may use the diphenoxylate/atropine 5 mg tablet 4 times a day for for 2 days as needed to control your diarrhea. Drink lots of fluids. Continue to use loratadine one to 2 tablets a day in addition to Pepcid twice a day until the rash and itching goes away. If you have breakthrough itching you can use 1-2 tablets of Benadryl every 6 hours as needed. Follow-up with your primary care provider this week or next for the results of your stool studies. All discharge instructions reviewed with patient and/or family. Voiced understanding. Scripts Diphenoxylate HCl/Atropine (Diphenoxylate-Atrop 2.5-0.025) 1 Each Tablet 2 EACH PO QID PRN for DIARRHEA for 2 Days, #8 TAB 0 Refills Prov: JERZY DAVALOS 07/18/18 Work/School Note: Work Release Form Date Seen in the Emergency Department: Jul 18, 2018 Return to Work: Jul 19, 2018 Restrictions: No Restrictions Copy Copies To 1: DANIELA GAO TITUS J Jul 18, 2018 10:45
[2018-07-18] MEDS ORDERED: DIPH1TAB25 PO (12:01)
[2018-07-18 12:38] VITALS: BP 120/92
== END 2018-07-18 12:37 | disposition home or self-care (01) ==
LOC: EDUNIT# 10:04 → ER 10:05
DX: L50.9 Urticaria, unspecified (principal); R19.7 Diarrhea, unspecified; F17.210 Nicotine dependence, cigarettes, uncomplicated; Z88.2 Allergy status to sulfonamides
CPT/HCPCS: 87015; 87045; 87046; 87324; 87328; 87329; 87449; 87493; 87899; 96374; 96375

== ENCOUNTER 2019-09-26 09:05 | Emergency (ER) | payer SELFPAY ==
[~2019-09-26] VITALS: Ht 162.5 cm; Wt 94.9 kg
[~2019-09-26 09:05] MED LIST changes: +DIPH1TAB25 PO; -TRAM50TA2 PO; +TRM50T PO
[2019-09-26 11:09] LABS: BASOPHILS % (AUTO) 0 % (0-10); EOSINOPHILS # (AUTO) 0.2 10^3/uL (0.0-0.3); EOSINOPHILS % (AUTO) 2 % (0-10); HEMATOCRIT 38 % (35-52); HEMOGLOBIN 11.8 G/DL (11.5-16.0); LYMPHOCYTES # (AUTO) 3.6 X 10^3 (1.0-4.0); LYMPHOCYTES % (AUTO) 29 % (12-44); MEAN CORPUSCULAR HEMOGLOBIN 27 PG (25-34); MEAN CORPUSCULAR HGB CONC 31 G/DL (32-36); MEAN CORPUSCULAR VOLUME 87 FL (80-99); MEAN PLATELET VOLUME 9.3 FL (7.4-10.4); MONOCYTES # (AUTO) 0.6 X 10^3 (0.0-1.0); MONOCYTES % (AUTO) 5 % (0-12); NEUTROPHILS # (AUTO) 7.7 X 10^3 (1.8-7.8); NEUTROPHILS % (AUTO) 64 % (42-75); PLATELET COUNT 371 10^3/uL (130-400); RED CELL DISTRIBUTION WIDTH 15.9 % (10.0-14.5); WHITE BLOOD COUNT 12.1 10^3/uL (4.3-11.0)
--- NOTE | 2019-09-26 11:13 | ED Abdominal Pain ---
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 Pt reports being 4-6 weeks . Pt reports spotting yesterday and noticed blodd in urine. Pt reports "chunky bleeding" today. Pt describes blood as dark red. Pt denies pain. 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 Pt reports being a pt at [facility] at this time. Sepsis Screen: No Definite Risk Source of Information: Patient Exam Limitations: No Limitations History of Present Illness Date Seen by Provider: Sep 26, 2019 Time Seen by Provider: 11:09 Initial Comments To ER with concerns of miscarriage. She is at about 4-6 weeks. She is having a lot of clots coming from the vagina. No pain. 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 She has an appointment with [facility] includes the [facility] tomorrow Timing/Duration: 1-2 Days Severity/Quality: Moderate Location: Generalized Abdomen Radiation: No Radiation Activities at Onset: None Associated Symptoms: Denies Symptoms Allergies and Home Medications Allergies Coded Allergies: Sulfa (Sulfonamide Antibiotics) (Verified Allergy, Severe, 04/26/13) Home Medications Cephalexin 500 Mg Tablet, 500 MG PO QID Prescribed by: JERZY DAVALOS on 03/12/18 2357 Diphenoxylate HCl/Atropine 1 Each Tablet, 2 EACH PO QID PRN for DIARRHEA Prescribed by: JERZY DAVALOS on 07/18/18 1201 Ondansetron 8 Mg Tab.rapdis, 8 MG PO Q6H PRN for NAUSEA/VOMITING-1ST LINE Prescribed by: ALLI TENORIO on 10/24/16 1916 Tramadol HCl 50 Mg Tablet, 50 MG PO Q6H PRN for PAIN Prescribed by: JERZY DAVALOS on 03/12/18 2357 Patient Home Medication List Home Medication List Reviewed: Yes Review of Systems Review of Systems Constitutional: see HPI EENTM: No Symptoms Reported Respiratory: No Symptoms Reported Cardiovascular: No Symptoms Reported Gastrointestinal: See HPI Genitourinary: No Symptoms Reported Musculoskeletal: no symptoms reported Skin: no symptoms reported Psychiatric/Neurological: No Symptoms Reported Endocrine: No Symptoms Reported Hematologic/Lymphatic: No Symptoms Reported Past Semfrgz-Wwagvq-Anitnn Hx Patient Social History Alcohol Use: Denies Use Recreational Drug Use: Yes (pt at [facility]) Drug of Choice: hx IV meth Smoking Status: Current Everyday Smoker Type Used: Cigarettes 2nd Hand Smoke Exposure: Yes Recent Foreign Travel: No Contact w/Someone Who Travel: No Recent Infectious Disease Expo: No Recent Hopitalizations: No Physical Abuse: No Sexual Abuse: No Mistreated: No Immunizations Up To Date Tetanus Booster (TDap): Unknown PED Vaccines UTD: Yes Seasonal Allergies Seasonal Allergies: No Past Medical History Surgeries: Yes (colonoscopy, i&d lip) Orthopedic Respiratory: No Cardiac: No Neurological: No Reproductive Disorders: No Sexually Transmitted Disease: No HIV/AIDS: No Genitourinary: No Gastrointestinal: No Musculoskeletal: No Endocrine: No HEENT: No Cancer: No Psychosocial: No Integumentary: No Blood Disorders: No Adverse Reaction/Blood Tranf: No Family Medical History No Pertinent Family Hx Physical Exam Vital Signs Vital Signs - First Documented 09/26/19 09:10 Temp 36.9 Pulse 99 Resp 18 B/P (MAP) 124/95 (105) Pulse Ox 97 O2 Delivery Room Air Capillary Refill : Less Than 3 Seconds Height/Weight/BMI Height: 5'2.00" Weight: 237lbs. oz. 107.300744xg; 35.00 BMI Method:Stated General Appearance: WD/WN, no apparent distress Respiratory: normal breath sounds, no respiratory distress, no accessory muscle use Cardiovascular: regular rate, rhythm, no murmur Gastrointestinal: normal bowel sounds, non tender, soft Extremities: normal range of motion, non-tender Neurologic/Psychiatric: alert, normal mood/affect, oriented x 3 Skin: normal color, warm/dry Progress/Results/Core Measures Results/Orders Lab Results Laboratory Tests Test 09/26/19 11:00 Range/Units Vital Signs/I&O 09/26/19 09:10 Temp 36.9 Pulse 99 Resp 18 B/P (MAP) 124/95 (105) Pulse Ox 97 O2 Delivery Room Air Blood Pressure Mean: 105 Departure Impression Primary Impression: Threatened miscarriage Disposition: 01 HOME, SELF-CARE Condition: Stable Departure-Patient Inst. Decision time for Depature: 11:12 Referrals: [facility] (PCP/Family) Primary Care Physician Patient Instructions: Bleeding In Early , Threatened Miscarriage Add. Discharge Instructions: 1. Your symptoms certainly do sound like a miscarriage. He'll need to have the hCG level repeated in a couple of days to see if this number is rising as it should be or falling as it would be in the case of miscarriage All discharge instructions reviewed with patient and/or family. Voiced understanding. Copy Copies To 1: DANIELA GAO PETER J APRN Sep 26, 2019 11:13
[2019-09-26 11:24] LABS: BILIRUBIN,URINE NEGATIVE (NEGATIVE); CLARITY,URINE CLEAR; COLOR,URINE YELLOW; GLUCOSE, URINE (UA) NEGATIVE (NEGATIVE); KETONES,URINE NEGATIVE (NEGATIVE); LEUKOCYTE ESTERASE ,URINE NEGATIVE (NEGATIVE); NITRITE,URINE NEGATIVE (NEGATIVE); PROTEIN,URINE NEGATIVE (NEGATIVE)
[2019-09-26 11:34] LABS: BACTERIA,URINE TRACE /HPF; RBC,URINE 50-100 /HPF; SQUAMOUS EPITHELIAL CELL,UR RARE /HPF; WBC,URINE RARE /HPF
[2019-09-26 12:13] VITALS: BP 129/90
== END 2019-09-26 12:13 | disposition home or self-care (01) ==
LOC: EDUNIT# 09:05 → ER 09:06
DX: O20.0 Threatened abortion (principal); O99.331 Smoking (tobacco) complicating pregnancy, first trimester; F17.210 Nicotine dependence, cigarettes, uncomplicated; Z88.2 Allergy status to sulfonamides; Z3A.01 Less than 8 weeks gestation of pregnancy
CPT/HCPCS: 36415; 81000; 84702; 84703; 85025; 86900; 86901; 99282